=== PATIENT | male | born 1940 | race Caucasian/White ===

== ENCOUNTER 2017-07-16 23:50 | Emergency (ER) | payer MEDICARE ==
[2017-07-16 23:56] VITALS: BP 143/67; PULSE 68; RESP 16; TEMP 98
--- NOTE | 2017-07-17 00:29 | ED ---
General Adult HPI <AguilarVinod - Last Filed: 07/17/17 00:29> - General Source: patient Mode of arrival: ambulatory Limitations: no limitations <Germania Rodgers - Last Filed: 07/17/17 01:38> - General Chief complaint: Recheck/Abnormal Lab/Rx Stated complaint: skin problem on ankle Time Seen by Provider: 07/16/17 23:59 - History of Present Illness Initial comments: 76 year-old male patient presents to the emergency department today for evaluation of bleeding to his right lower extremity. Patient states after he got out of the shower he was drying his leg with a towel when he started having blood spurting from the medial left ankle. Patient denies any known injury to the ankle. States he does take Xarelto and did have difficulty getting the bleeding to stop. He denies any weakness or dizziness. States this started around 10:30 PM. Patient denies any recent rash, fever, chills, shortness breath , chest pain, abdominal pain, nausea, vomiting, diarrhea, constipation, back pain, numbness, tingling, hematuria, dysuria, urinary urgency, urinary frequency , headache, visual changes, or any other complaints. (Germania Rodgers) - Related Data Home Medications Medication Instructions Recorded Confirmed Finasteride 5 mg PO DAILY 01/03/14 01/03/14 Omeprazole [PriLOSEC] 20 mg PO DAILY 01/03/14 01/03/14 Previous Rx's Medication Instructions Recorded Rivaroxaban [Xarelto] 15 mg PO BID 21 Days tab 01/09/14 predniSONE 5 mg PO BID #30 tab 01/09/14 Allergies Allergy/AdvReac Type Severity Reaction Status Date / Time amoxicillin Allergy Unknown Verified 07/16/17 23:56 ampicillin Allergy Rash/Hives Verified 01/03/14 19:54 Review of Systems ROS Other: All systems not noted in ROS Statement are negative. <Vinod Sheikh - Last Filed: 07/17/17 00:29> ROS Other: All systems not noted in ROS Statement are negative. <Germania Rodgers - Last Filed: 07/17/17 01:38> ROS Statement: Those systems with pertinent positive or pertinent negative responses have been documented in the HPI. Past Medical History Past Medical History: Deep Vein Thrombosis (DVT), GERD/Reflux, Hyperlipidemia, Osteoarthritis (OA), Pulmonary Embolus (PE) Additional Past Medical History / Comment(s): PMR History of Any Multi-Drug Resistant Organisms: None Reported Past Surgical History: Cholecystectomy, Hernia Repair, Orthopedic Surgery, Tonsillectomy Additional Past Surgical History / Comment(s): both total knees Past Anesthesia/Blood Transfusion Reactions: No Reported Reaction Past Psychological History: No Psychological Hx Reported Smoking Status: Never smoker Past Alcohol Use History: Occasional Past Drug Use History: None Reported - Past Family History Father Family Medical History: Cancer (colon, resected, no other treatment), Myocardial Infarction ([place]) Additional Family Medical History / Comment(s): mother dementia <Germania Rodgers - Last Filed: 07/17/17 01:38> General Exam Limitations: no limitations General appearance: alert, in no apparent distress, other (This is a well- developed, well-nourished elderly male patient in no acute distress. Vital signs upon presentation are temperature 98.0F, pulse 68, respirations 16, blood pressure 143/67, pulse ox 97% on room air.) ENT exam: Present: normal exam, normal oropharynx, mucous membranes moist Respiratory exam: Present: normal lung sounds bilaterally. Absent: respiratory distress, wheezes, rales, rhonchi, stridor Cardiovascular Exam: Present: regular rate, normal rhythm, normal heart sounds. Absent: systolic murmur, diastolic murmur, rubs, gallop, clicks Extremities exam: Present: full ROM, normal capillary refill, other (Patient has tiny area of bleeding noted at the medial left ankle. Appears to be a ruptured superficial vessel.). Absent: tenderness, pedal edema, joint swelling , calf tenderness Neurological exam: Present: alert, oriented X3, CN II-XII intact Psychiatric exam: Present: normal affect, normal mood Skin exam: Present: warm, dry, intact, normal color. Absent: rash <Germania Rodgers - Last Filed: 07/17/17 01:38> Course <Vinod Sheikh - Last Filed: 07/17/17 00:29> <Germania Rodgers - Last Filed: 07/17/17 01:38> Vital Signs 07/16/17 23:52 Temperature 98 F Pulse Rate 68 Respiratory 16 Rate Blood Pressure 143/67 O2 Sat by Pulse 97 Oximetry - Reevaluation(s) Reevaluation #1: 07/17/17 00:29 [employer] supervision: I did personally do a [id number] evaluation the patient did discuss findings with him. Patient has small bleeder that required suture for control. Patient is feeling much improved he will be discharged I do agree with the assessment and plan. (Vinod Sheikh) Procedures <Vinod Sheikh - Last Filed: 07/17/17 00:29> <Germania Rodgers - Last Filed: 07/17/17 01:38> - Procedures Initial comment: Patient had bleeding vessel of the left medial ankle. Did instill 1 mL of 1% lidocaine. 3 sutures were placed. 5-0 nylon. Did have good cessation of bleeding. Patient tolerated the procedure well. (Germania Rodgers) Medical Decision Making <Vinod Sheikh - Last Filed: 07/17/17 00:29> <Germania Rodgers - Last Filed: 07/17/17 01:38> - Medical Decision Making 76 year-old male patient presented to the emergency department today for evaluation of bleeding vessel in the left medial ankle. Did ligate the vessel using sutures. Had good cessation of blood flow. Patient tolerated the procedure well. He is instructed to return in 7 days for suture removal. He is instructed to follow up with his primary care physician for recheck in 1-2 days. Return parameters discussed in detail. He verbalizes understanding and agrees with this plan. (Germania Rodgers) Disposition <Vinod Sheikh - Last Filed: 07/17/17 00:29> Is patient prescribed a controlled substance at d/c from ED?: No Time of Disposition: 00:28 <Germania Rodgers - Last Filed: 07/17/17 01:38> Clinical Impression: Ruptured varicose vein Disposition: HOME SELF-CARE Condition: Good Instructions: Care For Your Stitches (ED), Varicose Veins (ED) Additional Instructions: Return in 7 days to have sutures removed. Keep pressure if he have return of bleeding. Keep sutured area clean and dry. Follow-up with your primary care physician for recheck in 1-2 days. Return here immediately for any new, worsening, or concerning symptoms. Referrals: Howard Davey MD [Primary Care Provider] - 1-2 days
== END 2017-07-17 00:40 | disposition home or self-care (01) ==
LOC: EC 23:50
DX: I83.892 Varicose veins of left lower extremity with other complications (principal); Z88.0 Allergy status to penicillin; K21.9 Gastro-esophageal reflux disease without esophagitis; Z79.01 Long term (current) use of anticoagulants; Z79.899 Other long term (current) drug therapy; Z86.711 Personal history of pulmonary embolism; Z86.718 Personal history of other venous thrombosis and embolism; Z98.890 Other specified postprocedural states
CPT/HCPCS: 12001; 99283

== ENCOUNTER → 2020-12-28 | Outpatient (CLI) | payer MEDICARE ==
--- NOTE | 2020-12-28 17:04 | XR ---
EXAMINATION TYPE: XR KUB DATE OF EXAM: 12/28/2020 Comparison: None Clinical History: 80-year-old male possible kidney stone N20.0 Findings: Supine imaging limited for assessment of free air. Nonobstructive bowel gas pattern. Mild scattered s tool. Cholecystectomy clips. Degenerative changes lower lumbar spine. No suspicious calcification is radiographically apparent. Unable to exclude abnormal opacity at the periphery of the right base. Impression: 1. No definite suspicious calcification is seen. 2. Unable to exclude abnormal opacity in the periphery of the right base. Recommend chest radiograph correlation.
== END | disposition home or self-care (01) ==
LOC: RADXRMAIN 16:43
PROVIDERS: ATTEND Urology
DX: Z03.89 Encounter for observation for other suspected diseases and conditions ruled out (principal)
CPT/HCPCS: 74018

== ENCOUNTER → 2021-01-23 | Outpatient (CLI) | payer MEDICARE ==
--- NOTE | 2021-01-24 02:02 | XR ---
EXAMINATION TYPE: XR chest 2V DATE OF EXAM: 01/23/2021 CLINICAL HISTORY: J12.9 Pneumonia. TECHNIQUE: Frontal and lateral view of the chest. COMPARISON: 01/07/2014 FINDINGS: The cardiomediastinal silhouette is within normal limits for size. Pulmonary vasculature i s normal. There is no focal air space opacity. No pleural effusion. No pneumothorax seen. No acute d isplaced osseous fracture. Degenerative changes of the spine. IMPRESSION: No acute cardiopulmonary process.
[2021-01-24 03:28] LABS: C Reactive Protein 2.8 mg/dL (0.00-0.80); Prostate Specific Antigen 5.7 ng/mL (0.00-6.50)
[2021-01-24 04:54] LABS: African American GFR (CKD) 94.5 (60.0-200.0); Anion Gap 12.5 mmol/L (4.00-12.00); BUN/Creat Ratio 31.72 Ratio (12.00-20.00); Blood Urea Nitrogen 27.6 mg/dL (9.0-27.0); Calcium 9.1 mg/dL (8.7-10.3); Carbon Dioxide 23.9 mmol/L (21.6-31.8); Non-African American GFR(CKD) 81.5 (60.0-200.0); Potassium 4.7 mmol/L (3.5-5.5)
[2021-01-24 05:03] LABS: Basophils # (A) 0.03 X 10*3/uL (0.00-0.10); Basophils % (A) 0.3 %; Eosinophils # (A) 0 X 10*3/uL (0.04-0.35); Eosinophils % (A) 0 %; HCT 43.9 % (39.6-50.0); HGB 14.1 g/dL (13.0-17.0); Lymphocytes # (A) 0.97 X 10*3/uL (0.90-5.00); Lymphocytes % (A) 9.2 %; MCH 30.7 pg (27.0-32.0); MCHC 32.1 g/dL (32.0-37.0); MCV 95.6 fL (80.0-97.0); Mean Platelet Volume 10.7 fL (9.5-12.2); Monocytes # (A) 0.28 X 10*3/uL (0.20-1.00); Monocytes % (A) 2.7 %; Neutrophils # (A) 9.11 X 10*3/uL (1.80-7.70); Neutrophils % (A) 86.8 %; Platelet Count 291 X 10*3/uL (140-440); RBC 4.59 X 10*6/uL (4.40-5.60); RDW 13.6 % (11.5-14.5)
[2021-01-24 05:16] LABS: Erythrocyte Sedimentation Rate 23 mm/Hr (0-20)
== END | disposition home or self-care (01) ==
LOC: LABWHC1 16:04
PROVIDERS: ATTEND Internal Medicine
DX: J12.9 Viral pneumonia, unspecified (principal); J06.9 Acute upper respiratory infection, unspecified
CPT/HCPCS: 36415; 71046; 80048; 82550; 83615; 84153; 85025; 85652; 86140

== ENCOUNTER → 2021-02-27 | Outpatient (CLI) | payer MEDICARE ==
--- NOTE | 2021-02-27 08:13 | CT ---
EXAMINATION TYPE: CT angio chest DATE OF EXAM: 02/27/2021 7:58 AM COMPARISON: 01/03/2014 HISTORY: Shortness of breath CT DLP: 412 mGycm Automated exposure control for dose reduction was used. CONTRAST: CTA scan of the thorax is performed without and with IV Contrast, patient injected with 100 ml mL of Isovue 370, pulmonary embolism protocol. . FINDINGS: LUNGS: Apical pleural thickening and subpleural areas of nodularity multiple subpleural nodules are s een measuring 5 mm or less. No consolidative pneumonia or pleural effusion. Bilateral pleural-based t hickening. No focal pneumonia. MEDIASTINUM: There is satisfactory enhancement of the pulmonary artery and its branches, there is no CT evidence for pulmonary embolism. There are no greater than 1 cm hilar or mediastinal lymph nodes. Atherosclerotic change of the aorta. Coronary artery calcification noted.. OTHER: Hypertrophic and degenerative changes of the spine. Low density lesion involving the left lob e liver measures 2 Hounsfield units suggestive of simple cyst stable from prior exam. IMPRESSION: 1. NO DIAGNOSTIC EVIDENCE OF PULMONARY EMBOLISM 2. CORONARY ARTERY CALCIFICATION. 3. MULTIPLE SUBPLEURAL NODULES MEASURING 5 MM OR LESS LIKELY BENIGN AND FOLLOW-UP EXAM IN 6-12 MONTHS RECOMMENDED.
== END | disposition home or self-care (01) ==
LOC: RADCTMAIN 08:37
PROVIDERS: ATTEND Internal Medicine Critical Care Medicine
DX: R06.09 Other forms of dyspnea (principal); R06.02 Shortness of breath; I25.10 Atherosclerotic heart disease of native coronary artery without angina pectoris; R91.8 Other nonspecific abnormal finding of lung field
CPT/HCPCS: 82565; 84520; 71275; 36415; Q9967